=== PATIENT | female | born 1930 | race Caucasian/White ===

== ENCOUNTER → 2016-07-20 | Outpatient (CLI) | payer MEDICARE, BC ==
[~2016-07-20] MED LIST: PRINIVIL40 MG PO; SYNTHROID0.075 MG PO
== END ==
LOC: RAD 10:35
DX: R05 Cough (principal); J44.9 Chronic obstructive pulmonary disease, unspecified; I51.7 Cardiomegaly

== ENCOUNTER → 2016-07-23 | Outpatient (CLI) | payer MEDICARE, BC | LOC: LAB 12:10 | DX: I10 Essential (primary) hypertension (principal); E87.1 Hypo-osmolality and hyponatremia; E03.4 Atrophy of thyroid (acquired) ==

== ENCOUNTER → 2016-10-16 | Outpatient (CLI) | payer MEDICARE, BC ==
[2013-06-22 10:45] VITALS: BP 191/101
[~2016-10-16] MED LIST changes: +CALCIUM CARBON600 M3 PO; +VITAMIN B122500 MC1 PO
== END ==
LOC: LAB 11:06
DX: E03.4 Atrophy of thyroid (acquired) (principal)

== ENCOUNTER → 2017-01-08 | Outpatient (CLI) | payer MEDICARE, BC ==
[~2017-01-08] VITALS: Ht 157.5 cm; Wt 37.3 kg
[2017-01-08 13:00] VITALS: BP 170/80
[2017-01-08 14:11] VITALS: BP 220/121
[2017-01-08 14:12] VITALS: BP 220/180
[2017-01-08 14:23] VITALS: BP 204/115
== END ==
LOC: LAB 11:14 → AMSURD 11:14
DX: E03.4 Atrophy of thyroid (acquired) (principal); R53.1 Weakness; I10 Essential (primary) hypertension; R29.6 Repeated falls; K59.00 Constipation, unspecified

== ENCOUNTER → 2017-01-11 | Outpatient (CLI) | payer MEDICARE, BC ==
[2017-01-08 14:23] VITALS: BP 204/115
[~2017-01-11] MED LIST changes: +DHA PO; +IBU400 MG PO; +LATANOPROST 2.2.5 ML OU; +LOPRESSOR 225 MG/TAB PO; +NORCO 325 MG-51 TAB PO; +PRESERVISION A1 EAC1 PO; +PROAIR HFA0.09 MG/AC IH; +TRAMADOL 50 MG TAB PO
== END ==
LOC: LAB 17:55
DX: R29.6 Repeated falls (principal); R53.1 Weakness

== ENCOUNTER 2017-01-13 11:23 | Emergency (ER) | payer MEDICARE, BC ==
[~2017-01-13] VITALS: Ht 152.4 cm; Wt 39.8 kg
[~2017-01-13 11:23] MED LIST changes: -DHA PO; -IBU400 MG PO; -LATANOPROST 2.2.5 ML OU; -LOPRESSOR 225 MG/TAB PO; -NORCO 325 MG-51 TAB PO; -PRESERVISION A1 EAC1 PO; -PROAIR HFA0.09 MG/AC IH; -TRAMADOL 50 MG TAB PO
[2017-01-13] MEDS ORDERED: PRESERVISION A1 EAC1 PO (11:51)
[2017-01-13] MEDS ORDERED: DHA PO (11:52)
[2017-01-13] MEDS ORDERED: LATANOPROST 2.2.5 ML OU (11:52)
[2017-01-13] MEDS ORDERED: PROAIR HFA0.09 MG/AC IH (11:53)
[2017-01-13] MEDS ORDERED: NORCO 325 MG-51 TAB PO (14:27)
[2017-01-13 16:00] VITALS: BP 206/100
== END 2017-01-13 16:00 | disposition home or self-care (01) ==
LOC: ED 11:23
DX: M54.5 Low back pain (principal); I73.9 Peripheral vascular disease, unspecified; R29.6 Repeated falls; I10 Essential (primary) hypertension; F03.90 Unspecified dementia, unspecified severity, without behavioral disturbance, psychotic disturbance, mood disturbance, and anxiety; J44.9 Chronic obstructive pulmonary disease, unspecified; E03.9 Hypothyroidism, unspecified; S20.222A Contusion of left back wall of thorax, initial encounter; S30.0XXA Contusion of lower back and pelvis, initial encounter; S50.812A Abrasion of left forearm, initial encounter; W19.XXXA Unspecified fall, initial encounter; Z91.81 History of falling; F17.200 Nicotine dependence, unspecified, uncomplicated
CPT/HCPCS: A6402

== ENCOUNTER 2017-01-15 12:26 | Observation (INO) | payer MEDICARE, BC ==
[~2017-01-15] VITALS: Ht 152.4 cm; Wt 38.0 kg
[~2017-01-15 12:26] MED LIST changes: +DHA PO; +LATANOPROST 2.2.5 ML OU; +NORCO 325 MG-51 TAB PO; +PRESERVISION A1 EAC1 PO; +PROAIR HFA0.09 MG/AC IH
[2017-01-15 12:52] VITALS: BP 199/108
[2017-01-15 12:59] VITALS: BP 199/108
[2017-01-15 16:30] VITALS: BP 180/100
[2017-01-15] MEDS ORDERED: LOPRESSOR 225 MG/TAB PO (16:32)
[2017-01-15 16:33] VITALS: BP 177/102
[2017-01-15 18:13] VITALS: BP 205/109
[2017-01-15 23:14] VITALS: BP 152/76
[2017-01-16 03:17] VITALS: BP 148/55
[2017-01-16 06:34] VITALS: BP 174/80
[2017-01-16 11:25] VITALS: BP 117/67
[2017-01-16 15:27] VITALS: BP 155/80
[2017-01-16] MEDS ORDERED: IBU400 MG PO (17:26)
[2017-01-16] MEDS ORDERED: TRAMADOL 50 MG TAB PO (17:26)
[2017-01-16 18:31] VITALS: BP 160/82
[2017-01-16 23:32] VITALS: BP 175/87
[2017-01-17 03:03] VITALS: BP 175/84
[2017-01-17 06:29] VITALS: BP 160/84
== END 2017-01-17 09:20 | disposition home or self-care (01) ==
LOC: MED/SURG 12:26
PROVIDERS: ADMIT Nurse Practitioner Family
DX: M48.54XA Collapsed vertebra, not elsewhere classified, thoracic region, initial encounter for fracture (principal); E87.1 Hypo-osmolality and hyponatremia; M47.816 Spondylosis without myelopathy or radiculopathy, lumbar region; R15.9 Full incontinence of feces; R29.898 Other symptoms and signs involving the musculoskeletal system; R26.89 Other abnormalities of gait and mobility; R29.6 Repeated falls; Z91.81 History of falling
CPT/HCPCS: G0378; G0379; J1650

== ENCOUNTER → 2017-10-16 | Outpatient (CLI) | payer MEDICARE, BC ==
[~2017-10-16] MED LIST changes: +IBU400 MG PO; +LOPRESSOR 225 MG/TAB PO; +TRAMADOL 50 MG TAB PO
== END ==
LOC: RAD 15:33
DX: S22.070A Wedge compression fracture of T9-T10 vertebra, initial encounter for closed fracture (principal); Z87.311 Personal history of (healed) other pathological fracture; M50.30 Other cervical disc degeneration, unspecified cervical region; M81.0 Age-related osteoporosis without current pathological fracture; M54.5 Low back pain

== ENCOUNTER → 2017-11-08 | Outpatient (CLI) | payer MEDICARE, BC ==
[2017-11-08 15:31] LABS: EOS # 0.1 (0.04-0.40); EOS % 1.2 % (1.0-5.0); HEMATOCRIT 41.4 % (37.0-47.0); HEMOGLOBIN 13.5 g/dL (12.5-16.0); LYMPH# 2.1 (1.50-4.00); MEAN CELL VOLUME 93 fl (78-100); MEAN CORPUSCULAR HEMOGLOBIN 30 pg (27-31); MEAN CORPUSCULAR HGB CONC 33 g/dL (33-37); MONO # 1.1 (0.20-0.80); NEU # 7.3 (1.40-6.50); PLATELET COUNT 336 K/mm3 (130-400); RED BLOOD COUNT 4.44 M/mm3 (4.10-5.30); RED CELL DISTRIBUTION WIDTH 14.1 % (11.5-14.5); WHITE BLOOD COUNT 10.7 K/mm3 (4.8-10.8)
[2017-11-08 15:40] LABS: BUN/CREATININE RATIO 33.8 (6.0-26.0); CALCIUM 9.2 mg/dL (8.4-10.2)
== END ==
LOC: LAB 14:44
PROVIDERS: Family Medicine
DX: M41.85 Other forms of scoliosis, thoracolumbar region (principal); R91.8 Other nonspecific abnormal finding of lung field; E22.2 Syndrome of inappropriate secretion of antidiuretic hormone; E03.9 Hypothyroidism, unspecified; W19.XXXA Unspecified fall, initial encounter

== ENCOUNTER 2017-12-18 20:50 | Emergency (ER) | payer MEDICARE, BC ==
[~2017-12-18] VITALS: Ht 160 cm; Wt 39.1 kg
[2017-12-18 21:36] LABS: HEMATOCRIT 37.2 % (37.0-47.0); HEMOGLOBIN 12.3 g/dL (12.5-16.0); MEAN CELL VOLUME 92 fl (78-100); MEAN CORPUSCULAR HEMOGLOBIN 31 pg (27-31); MEAN CORPUSCULAR HGB CONC 33 g/dL (33-37); MEAN PLATELET VOLUME 11.8 fl (7.4-10.4); PLATELET COUNT 184 K/mm3 (130-400); RED BLOOD COUNT 4.03 M/mm3 (4.10-5.30); RED CELL DISTRIBUTION WIDTH 14.1 % (11.5-14.5); WHITE BLOOD COUNT 8.5 K/mm3 (4.8-10.8)
[2017-12-18 21:43] LABS: CALCIUM 9.1 mg/dL (8.4-10.2); POTASSIUM 4.3 mmol/L (3.6-5.0); TOTAL BILIRUBIN 0.4 mg/dL (0.2-1.3); TOTAL PROTEIN 6.9 g/dL (6.3-8.2)
[2017-12-18 21:44] LABS: LYMPHOCYTE 39 % (20-51); MONOCYTE 10 % (3-10); NEUTROPHILS 46 % (42-75)
[2017-12-18 22:04] LABS: URINE APPEARANCE CLEAR; URINE BILIRUBIN NEGATIVE (NEGATIVE); URINE BLOOD NEGATIVE (NEGATIVE); URINE COLOR YELLOW; URINE GLUCOSE NEGATIVE (NEGATIVE); URINE KETONE NEGATIVE (NEGATIVE); URINE LEUKOCYTE ESTERASE NEGATIVE (NEGATIVE); URINE NITRATE NEGATIVE (NEGATIVE); URINE PROTEIN(semi-quant) NEGATIVE (NEGATIVE); URINE UROBILINOGEN NORMAL (NORMAL); URINE WBC 0-1 /hpf (0-3)
[2017-12-18] MEDS ORDERED: AMLODIPINE BESY10 MG PO (22:10)
[2017-12-18] MEDS ORDERED: CALCITONIN200 IU/Act NS (22:10)
[2017-12-18] MEDS ORDERED: CARVEDILOL25 MG PO (22:10)
[2017-12-18] MEDS ORDERED: GABAPENTIN100 MG PO (22:11)
[2017-12-18] MEDS ORDERED: NORCO 325 MG-7.1 TA1 PO (22:11)
[2017-12-18] MEDS ORDERED: CYCLOBENZAPRINE10 M1 PO (22:11)
[2017-12-18] MEDS ORDERED: LIDOCAINE PAIN1 EACH TP (22:13)
[2017-12-18] MEDS ORDERED: LISINOPRIL20 MG PO (22:13)
[2017-12-18] MEDS ORDERED: GLYCOLAX17 GM/DOSE PO (22:13)
[2017-12-18] MEDS ORDERED: D3-5000 90 MG-51 TAB PO (22:14)
[2017-12-18] MEDS ORDERED: PRESERVISION A1 EAC1 PO (22:14)
[2017-12-18 23:17] VITALS: BP 125/49
== END 2017-12-18 23:26 | disposition short-term general hospital (02) ==
LOC: ED 20:50
PROVIDERS: Nurse Practitioner
DX: S72.142A Displaced intertrochanteric fracture of left femur, initial encounter for closed fracture (principal); W18.30XA Fall on same level, unspecified, initial encounter; Y92.129 Unspecified place in nursing home as the place of occurrence of the external cause; R42 Dizziness and giddiness; I10 Essential (primary) hypertension; Z87.891 Personal history of nicotine dependence; Z91.81 History of falling; Z79.899 Other long term (current) drug therapy
CPT/HCPCS: J2405; J3010; J7030